=== PATIENT | female | born 1940 | race Caucasian/White ===

== ENCOUNTER → 2017-10-14 | Day surgery (SDC) | payer OTHER ==
[2017-10-13 14:14] LABS: BASOPHILS # (AUTO) 0.1 (0.0-0.1); BASOPHILS % 0.8 % (0.0-1.0); EOSINOPHILS # (AUTO) 0.3 (0.0-0.4); EOSINOPHILS % 4.3 % (0.0-6.0); HEMATOCRIT 39.7 % (34.2-44.1); HEMOGLOBIN 13.6 g/dL (12.0-16.0); LYMPHOCYTES # (AUTO) 1.2 (1.0-3.2); LYMPHOCYTES % 17.2 % (18.0-39.1); MEAN CORPUSCULAR HEMOGLOBIN 30.5 pg (28-32); MEAN CORPUSCULAR HGB CONC 34.3 g/dL (31-35); MONOCYTES # (AUTO) 0.6 (0.2-0.8); MONOCYTES % 7.7 % (4.4-11.3); NEUTROPHILS % 69.6 % (38.7-80.0); PLATELET COUNT 309 x10e3/uL (140-360); RED BLOOD COUNT 4.46 x10e6/uL (3.6-5.1); RED CELL DISTRIBUTION WIDTH 13.2 % (11.7-14.4)
[2017-10-13 14:30] LABS: INR 1.05; PROTHROMBIN TIME 12.9 seconds (11.9-14.5)
[2017-10-13 14:42] LABS: ALBUMIN 3.9 g/dL (3.5-5.0); ANION GAP 14.4 mmol/L (8-16); CHOL/HDL RATIO 3.7 (3.0-3.6); CREATININE, SERUM 1.45 mg/dL (0.57-1.11); POTASSIUM 4.4 mmol/L (3.5-5.1)
[2017-10-14] VITALS (18 sets, daily range): BP systolic 111–157; BP diastolic 63–96
[~2017-10-14] VITALS: Ht 167.6 cm; Wt 65.8 kg
[~2017-10-14] MED LIST: ALPRAZOLAM 0.5 MG TAB ONE; AMBIEN5 MG PO; ASPIRIN 325 MG TAB ONE; DEXILANT60 MG PO; DIPHENHYDRAMINE HCL 25 MG CAP ONE; FENTANYL CITRATE/PF 100MCG/2 ML INJ ONE; HEPARIN SOD (PORCINE) 1000 UNIT/ML 30ML ONE; HEPARIN SOD/SOD CHLORIDE 2,000 ML ONE; IOPAMIDOL 370 MG/ML 200 ML INFUS..BTL INJ ONE; LEVOTHYROXINE100 MCG PO; LIDOCAINE HCL 2% LOCAL 20 ML VIAL ONE; MIDAZOLAM HCL 2 MG/2 ML VIAL ONE; MORPHINE SULFATE 2 MG/ML SYR ONE; NEXIUM40 M1 PO; NITROGLYCERIN/D5W 200 MCG/ML 250 ML ONE; NORCO 5-325 TA1 EACH PO; OMEPRAZOLE40 MG PO; PLAQUENIL200 MG PO; PRASUGREL 10 MG TAB ONE; PROBIOTIC COMP1 EACH PO; PROMETHAZINE HC25 M1 PO; PROTAMINE SULFATE 10 MG/ML 5 ML VIAL ONE; PROZAC10 MG PO; REGLAN10 MG PO; SODIUM CHLORIDE 0.9% 100 ML 100 ML ONE; SODIUM CHLORIDE 0.9% 1000ML 1,000 ML ONE; VERAPAMIL HCL 2.5 MG/ML 2 ML VIAL ONE; ZOFRAN ODT4 MG PO; ZOFRAN4 MG PO; [UNRECOGNIZED DRUG - OTHER]
--- OUTSIDE RECORDS SUMMARY | 2017-10-14 11:34 | XMS REPORT | Clinical Summary ---
Author Author [facility] Organization [facility] Address Unknown Phone Unavailable Care Team Providers Care Tie Layer Name Role Phone Jose Diggs MD PCP Allergies No Known Allergies Current Medications Prescription Sig. Disp. Refills Start End Date Status Date levothyroxine (SYNTHROID, 01/28/20 Active LEVOXYL) 50 mcg tablet 17 DEXILANT 60 mg capsule 01/09/20 Active 17 zolpidem (AMBIEN) 10 mg 0 10/25/19 Active tablet 17 FLUoxetine (PROzac) 40 MG 01/09/20 Active capsule 17 ondansetron (ZOFRAN) 4 MG Take 4 mg by mouth every Active tablet 8 (eight) hours as needed for nausea or vomiting. HYDROcodone-acetaminophen Take 1 tablet by mouth Active (NORCO) 10-325 mg per every 6 (six) hours as tablet needed for moderate pain. Active Problems Problem Noted Date Impacted cerumen of right ear 02/03/2017 Cough 01/29/2017 Encounters Date Type Specialty Care Team Description 07/04/2017 Transcribe Access Jc Cruz MD Cough (Primary Dx) Orders 02/03/2017 Office Visit Otolaryngology Kris Bennett MD Impacted cerumen of right ear (Primary Dx) 01/29/2017 Office Visit Otolaryngology Kris Bennett MD Cough ( Primary Dx) after 10/13/2016 Social History Tobacco Use Types Packs/Day Years Used Date Former Smoker Alcohol Use Drinks/Week oz/Week Comments No Sex Assigned at Date Recorded Not on file Last Filed Vital Signs Vital Sign Reading Time Taken Blood Pressure 169/102 02/03/2017 3:28 PM CDT Pulse 76 02/03/2017 3:28 PM CDT Temperature - - Respiratory Rate - - Oxygen Saturation - - Inhaled Oxygen - - Concentration Weight 73.9 kg (163 lb) 02/03/2017 3:28 PM CDT Height 167.6 cm (5' 6") 02/03/2017 3:28 PM CDT Body Mass Index 26.31 02/03/2017 3:28 PM CDT Plan of Treatment Health Maintenance Due Date Last Done Comments SHINGRIX VACCINE (#1) 11/14/1989 ZOSTER VACCINE 1999 PNEUMOCOCCAL 11/14/2004 POLYSACCHARIDE VACCINE AGE 65 AND OVER PNEUMOCOCCAL-13 11/14/2004 INFLUENZA VACCINE 12/10/2017 Results Not on fileafter 10/13/2016 Insurance Payer Benefit Subscriber ID Type Phone Address Plan / Group [employer] [address] [place] [address]
--- NOTE | 2017-10-14 13:06 | Operative Report ---
DATE OF PROCEDURE: October 14, 2017 INDICATIONS: Coronary artery disease. Abnormal stress test with inferior ischemia. PROCEDURES PERFORMED 1. Left heart catheterization, selective coronary angiography. 2. Percutaneous transluminal coronary angioplasty and drug-eluting stent placed in the proximal right coronary artery. 3. Deployment of right groin Perclose. COMPLICATIONS: None. RECOMMENDATIONS: Dual antiplatelet therapy for at least 6 months. Access was attempted in the right radial artery. However, severe spasm, which was unresolved with copious amounts of intracoronary nitroglycerin, forced us to abort the procedure without cannulation of the coronaries. Access was obtained in the right femoral artery. A 6-Welsh sheath was placed. Left main was widely patent. Left anterior and diagonal arteries had mild disease. Circumflex mid 50% and proximal RCA 70%. A decision was made to intervene on the right coronary artery. The patient received 6,000 units of intravenous heparin. ACT 274. The right coronary artery was cannulated using a 6-Welsh JR4 guiding catheter. Primary stent 3.0 x 16 mm post dilated with a 3.5 mm balloon. Excellent end result, less than 10% distal stenosis and GEORGE-3 flow. No complications. Right groin was repaired using Perclose. Patient discharged home the same day after 6 hours observation. Job#: [id number]
== END | disposition home or self-care (01) ==
LOC: CATH LAB 11:31
PROVIDERS: ATTEND Internal Medicine Interventional Cardiology
DX: I25.118 Atherosclerotic heart disease of native coronary artery with other forms of angina pectoris (principal); R94.39 Abnormal result of other cardiovascular function study; I73.9 Peripheral vascular disease, unspecified; R60.0 Localized edema; Z88.1 Allergy status to other antibiotic agents; Z88.8 Allergy status to other drugs, medicaments and biological substances; Z01.810 Encounter for preprocedural cardiovascular examination; Z01.812 Encounter for preprocedural laboratory examination
CPT/HCPCS: 93454; C9600; 36140; 36415; 77002; 80053; 80061; 85025; 85610; 92920; 93005; 93458; C1874; J1644; J2001; J2250; J2270; J2720; J7030; Q9967

== ENCOUNTER → 2017-12-01 | Outpatient (CLI) | payer OTHER ==
[~2017-12-01] MED LIST changes: -ALPRAZOLAM 0.5 MG TAB ONE; -ASPIRIN 325 MG TAB ONE; -DIPHENHYDRAMINE HCL 25 MG CAP ONE; -HEPARIN SOD (PORCINE) 1000 UNIT/ML 30ML ONE; -HEPARIN SOD/SOD CHLORIDE 2,000 ML ONE; -IOPAMIDOL 370 MG/ML 200 ML INFUS..BTL INJ ONE; +LIDOCAINE HCL 1% LOCAL INJ 20 ML VIAL ONE; -LIDOCAINE HCL 2% LOCAL 20 ML VIAL ONE; +LORAZEPAM INJ 2 MG/ML VIAL ONE; -MORPHINE SULFATE 2 MG/ML SYR ONE; -NITROGLYCERIN/D5W 200 MCG/ML 250 ML ONE; -PRASUGREL 10 MG TAB ONE; -PROTAMINE SULFATE 10 MG/ML 5 ML VIAL ONE; -SODIUM CHLORIDE 0.9% 100 ML 100 ML ONE; -SODIUM CHLORIDE 0.9% 1000ML 1,000 ML ONE; +SODIUM CHLORIDE 0.9% 500ML 500 ML ONE; -VERAPAMIL HCL 2.5 MG/ML 2 ML VIAL ONE
--- NOTE | 2017-12-01 13:48 | Diagnostic Imaging Report ---
PROCEDURE:CHEST XRAY POST PROCEDURE COMPARISON:Outside hospital PET/CT Chest 08/21/2017 (report not available) INDICATIONS:POST LUNG BIOPSY FINDINGS: Lines: None Lungs/pleura: No evidence of pneumonia or pulmonary edema. Patchy opacification in the right upper lung, corresponding to known right lung nodule status post biopsy, possibly with superimposed atelectasis or trace blood products. A trace amount of pleural fluid in the right apex, status post blood patch administration into pleural space. No definite pneumothorax. Mediastinum: The cardiomediastinal silhouette is unremarkable. There is mild rightward tracheal deviation. Bones: No acute findings. Partially seen cervical spine fixation hardware. CONCLUSION: Status post right upper lung nodule biopsy with trace right apical pleural fluid, expected post blood patch administration. No definite pneumothorax. Dictated by: SHAI PETERSON M.D. on 12/01/2017 at 13:53 Electronically approved by: SHAI PETERSON M.D. on 12/01/2017 at 13:53
--- NOTE | 2017-12-01 14:00 | Diagnostic Imaging Report ---
PROCEDURE:CT GUIDED FINE NEEDLE ASPIRATE AND CORE BIOPSY OF RIGHT UPPER LOBE PULMONARY NODULE COMPARISON:Outside hospital PET/CT chest 08/21/2017 (report not available) INDICATIONS:LUNG BIOPSY, RIGHT UPPER LOBE LESION FINDINGS: Written and verbal consent were obtained. Patient was placed in prone positioning. Preliminary automotive engineering teacher demonstrated a right upper lobe pulmonary nodule. A safe entry route was identified and the overlying skin was prepped and draped in usual sterile fashion. Lidocaine 1% was used for local pain control and was administered superficially and deep in the expected tract with a 25 gauge spinal needle. Subsequently a 19 cm x 12.5 cm introducer was advanced into the pleural space with a single pleural puncture and advanced into the target nodule with CT guidance. Saline was administered into the introducer needle as the inner stylet was removed and on subsequent biopsy passes. A 22 gauge Chiba needle was advanced through the introducer and two fine needle aspirates were obtained. Pathologist was present on site and confirmed satisfactory cellularity. Subsequently a 20 gauge x 15 cm core biopsy device with 1 cm throw was advanced into the lesion with CT confirming positioning. A total of five core biopsy samples were obtained. CT demonstrated a small right apical pneumothorax. The core biopsy device was removed and the introducer needle was withdrawn into the pleural space. Approximately 15 cc of air was aspirated from the pleural space. Approximately 15 cc of peripheral IV blood was aspirated and a blood patch was administered, with injection of the 15 cc of blood into the right apical pleural space. The introducer needle was removed with repeat CT demonstrating smaller trace right apical pneumothorax. The patient tolerated the procedure well, and there were no immediate post-procedural complications. CONCLUSION: CT guided right upper lobe lung nodule fine needle aspirate and core biopsy as above. Small right apical pneumothorax treated with needle aspiration and blood patch administration.. Dictated by: SHAI PETERSON M.D. on 12/01/2017 at 14:05 Electronically approved by: SHAI PETERSON M.D. on 12/01/2017 at 14:05
--- NOTE | 2017-12-01 14:51 | Diagnostic Imaging Report ---
PROCEDURE:CHEST XRAY POST PROCEDURE COMPARISON:Chest radiograph 103PM. INDICATIONS:Follow-up 3 hour radiograph post lung biopsy FINDINGS: Lines: None Lungs/pleura: No evidence of pneumonia or pulmonary edema. Opacity in right upper lung, corresponding to known nodule. A trace amount of pleural fluid in the right apex, status post blood patch administration into pleural space. No definite pneumothorax. Mediastinum: The cardiomediastinal silhouette is unremarkable. Bones: No acute findings. Partially seen cervical spine fixation hardware. CONCLUSION: Status post right upper lung nodule biopsy with trace right apical pleural fluid, expected post blood patch administration. No definite pneumothorax. Dictated by: SHAI PETERSON M.D. on 12/01/2017 at 14:56 Electronically approved by: SHAI PETERSON M.D. on 12/01/2017 at 14:56
== END ==
LOC: CT 09:09
PROVIDERS: ATTEND Thoracic Surgery (Cardiothoracic Vascular Surgery)
DX: R91.1 Solitary pulmonary nodule (principal)
CPT/HCPCS: 10022; 32405; 71045; 77012; 88112; 88172; 88173; 88305; J2001; J2060; J2250; J7040; 88342; 99152; 99153